=== PATIENT | male | born 1960 | race Caucasian/White ===

== ENCOUNTER 2022-12-21 13:19 | Emergency (ER) | payer BC, SELFPAY ==
[2022-12-21 13:28] VITALS: BP 190/93; PULSE 64; RESP 16; TEMP 36.5; O2SAT 99; BMI 31.6
--- NOTE | 2022-12-21 14:07 | DI.RAD.S_ITS ---
PROCEDURE: XR HIP W PEL IF DONE RT 2V INDICATIONS: right hip and leg pain TECHNIQUE: AP pelvis with lateral view(s) of the right hip(s). COMPARISON: None. FINDINGS: Bones: No fractures or dislocations. Pelvic ring appears intact. No suspicious bony lesions. [id number] bilateral, right greater than left degenerative narrowing of hip joints. Periarticular osteophytes are most prominent on the right. Soft tissues: The visualized bowel gas pattern is normal. No suspicious soft tissue calcifications. IMPRESSION: Arthritic changes as above. Dictated by: Mindi Ortega M.D. on 12/21/2022 at 15:18 Approved by: Mindi Ortega M.D. on 12/21/2022 at 15:19
[2022-12-21] MEDS: OXYCODONE IR 5 MG TABLET PO (14:08)
--- NOTE | 2022-12-21 14:10 | ED.EXTPRO ---
HPI - Extremity Problem <Megan Ortega PA-C - Last Filed: 12/21/22 18:29> General Chief complaint: Extremity Problem,Nontraumatic Stated complaint: sent by [facility] leg pain Time Seen by Provider: 12/21/22 13:46 Source: patient Mode of arrival: Wheelchair History of Present Illness HPI Narrative: Patient is a 62 year old male who presents with 2 weeks of right hip and right lower extremity pain. The pain started 2 weeks ago and was not preceded by any injury or trauma. Pain started in his hip and over the next several days increased down the front of his thigh through his knee and into the front of his lower leg. He has been seen at at least 3 other facilities for the same pain, including the walk-in clinic on would be, that would be ER and urgent care in [place]. During these evaluations, he has had a negative workup for DVT in the right lower extremity, x-rays of virus lumbar spine. The only time he has felt any relief was when they gave him a dose of Decadron. He is tried taking muscle relaxers, Tylenol and hydrocodone with minimal relief. The pain is worse when he lays down, better when he is sitting. It is very painful to walk. The pain is constant, not a shooting intermittent pain. He denies any loss of bowel or bladder control or saddle anesthesia. He had 2 cardiac stents placed in March 2022 and currently takes rosuvastatin, losartan, clopidogrel, and aspirin. Related Data Home Medications Medication Instructions Recorded Confirmed aspirin 81 mg tablet,delayed 81 mg PO DAILY 12/21/22 12/21/22 release (Adult Low Dose Aspirin) clopidogrel 75 mg tablet 75 mg PO DAILY 12/21/22 12/21/22 hydrocodone 5 mg-acetaminophen 325 tab PO 12/21/22 12/21/22 mg tablet losartan 50 mg tablet 50 mg PO DAILY 12/21/22 12/21/22 rosuvastatin 40 mg tablet 40 mg PO DAILY 12/21/22 12/21/22 Previous Rx's Medication Instructions Recorded oxycodone 5 mg tablet 5 mg PO Q8H PRN pain #20 tabs 12/21/22 prednisone 50 mg tablet 50 mg PO DAILY #5 tabs 12/21/22 Allergies Allergy/AdvReac Type Severity Reaction Status Date / Time No Known Drug Allergies Allergy Unverified 12/21/22 12:44 Review of Systems <Megan Ortega PA-C - Last Filed: 12/21/22 18:29> Review of Systems ROS Unobtainable: All systems reviewed & are unremarkable except as noted in HPI and below Patient History <Megan Ortega PA-C - Last Filed: 12/21/22 18:29> Social History Smoking Status: Never smoker Smoking Status: Never smoker Substance Use Type: does not use Exam <Megan Ortega PA-C - Last Filed: 12/21/22 18:29> Narrative Exam Narrative: GENERAL: 62 year old patient appears stated age. Well-developed patient, in moderate distress. NEURO: AOx3. HEAD: Atraumatic. Normocephalic. EYES: Pupils equal round and reactive. Extraocular motions intact. No scleral icterus. No injection or drainage. ENT: Nose without bleeding or purulent drainage. Airway patent. NECK: Trachea midline. Non tender CARDIOVASCULAR: Regular rate and rhythm without murmurs, gallops, or rubs. RESPIRATORY: Clear to auscultation. Breath sounds equal bilaterally. No wheezes, rales, or rhonchi. GASTROINTESTINAL: Abdomen soft, non-tender, nondistended. EXTREMITIES: Trace left lower extremity edema, 1+ pitting edema of right lower extremity. In the affected right extremity there is tenderness with palpation over the medial calf, anterior fritz, medial joint line of the knee, tenderness of the thigh and significant pain with palpation over the greater trochanter. BACK: There is no midline tenderness deformity or step-off, there is right low paraspinal lumbar tenderness and tenderness over the gluteus tommy superiorly. No CVA tenderness. SKIN: No rash or erythema of visible areas Initial Vital Signs Initial Vital Signs: Vital Signs Temperature 97.7 F 12/21/22 13:28 Pulse Rate 64 12/21/22 13:28 Respiratory Rate 16 12/21/22 13:28 Blood Pressure 190/93 H 12/21/22 13:28 Pulse Oximetry 99 12/21/22 13:28 Oxygen Delivery Method Room Air 12/21/22 13:28 <Davie Campbell MD - Last Filed: 12/27/22 06:47> Initial Vital Signs Initial Vital Signs: Vital Signs Temperature 97.7 F 12/21/22 13:28 Pulse Rate 64 12/21/22 13:28 Respiratory Rate 16 12/21/22 13:28 Blood Pressure 190/93 H 12/21/22 13:28 Pulse Oximetry 99 12/21/22 13:28 Oxygen Delivery Method Room Air 12/21/22 13:28 Course <Megan Ortega PA-C - Last Filed: 12/21/22 18:29> Orders Ordered: Discontinued Medications Diazepam (Diazepam 5 Mg Tablet) 5 mg PO NOW ONE Stop: 12/21/22 15:28 Last Admin: 12/21/22 15:36 Dose: 5 mg Documented By: DOLORES Oxycodone HCl (Oxycodone Ir 5 Mg Tablet) 5 mg PO NOW ONE Stop: 12/21/22 14:03 Last Admin: 12/21/22 14:08 Dose: 5 mg Documented By: GENNARO Vital Signs Vital signs: Vital Signs - 8 hr 12/21/22 13:28 12/21/22 17:34 Temperature 97.7 F Pulse Rate 64 61 Respiratory Rate 16 Blood Pressure 190/93 H 176/80 H Pulse Oximetry 99 98 Oxygen Delivery Method Room Air Room Air <Davie Campbell MD - Last Filed: 12/27/22 06:47> Orders Ordered: Discontinued Medications Diazepam (Diazepam 5 Mg Tablet) 5 mg PO NOW ONE Stop: 12/21/22 15:28 Last Admin: 12/21/22 15:36 Dose: 5 mg Documented By: DOLORES Oxycodone HCl (Oxycodone Ir 5 Mg Tablet) 5 mg PO NOW ONE Stop: 12/21/22 14:03 Last Admin: 12/21/22 14:08 Dose: 5 mg Documented By: GENNARO Vital Signs Vital signs: Vital Signs - 8 hr 12/21/22 13:28 12/21/22 17:34 Temperature 97.7 F Pulse Rate 64 61 Respiratory Rate 16 Blood Pressure 190/93 H 176/80 H Pulse Oximetry 99 98 Oxygen Delivery Method Room Air Room Air MDM - Extremity (Nontraumatic) <Megan Ortega PA-C - Last Filed: 12/21/22 18:29> Lab Data 12/21/22 14:20 12/21/22 14:20 Labs: Lab Results 12/21/22 12/21/22 Range/Units 14:20 15:49 WBC 8.0 (4.5-11.0) X10^3/uL RBC 5.11 (4.0-5.2) X10^6/uL Hgb 15.1 (12.0-16.0) g/dL Hct 43.6 (36-46) % MCV 85.3 (80-100) fL MCH 29.5 (26-34) PG MCHC 34.5 (30-36) % RDW 13.0 (11.6-14.8) % Plt Count 333 (150-400) X10^3/uL Neut % (Auto) 57.1 (50-75) % Lymph % (Auto) 29.2 (25-40) % Miller % (Auto) 8.5 (3-14) % Eos % (Auto) 2.6 (2-4) % Baso % (Auto) 2.6 H (0-2) % Neut # (Auto) 4600 (4360-6476) /uL Lymph # (Auto) 2300 (9094-2591) /uL Miller # (Auto) 700 (0-900) /uL Eos # (Auto) 200 (0-450) /uL Baso # (Auto) 200 H (0-100) /uL ESR 9 (0-20) MM/HR Sodium 139 (137-145) mmol/L Potassium 3.9 (3.4-5.1) mmol/L Chloride 100 (98-107) mmol/L Carbon Dioxide 28 (22-32) mmol/L BUN 20 H (7-17) mg/dL Creatinine 0.86 (0.52-1.04) mg/dL Estimated GFR > 60 (>60) mL/min BUN/Creatinine Ratio 23.3 H (6-22) Glucose 93 (80-110) mg/dL Calcium 10.1 (8.4-10.2) mg/dL Total Bilirubin 0.6 (0.2-1.3) mg/dL AST 46 H (14-36) IU/L ALT 96 H (<35) IU/L Alkaline Phosphatase 52 (38-126) U/L C-Reactive Protein < 0.5 (<1.0) mg/dL Total Protein 8.7 H (6.3-8.2) g/dL Albumin 4.9 (3.5-5.0) g/dL Globulin 3.8 (1.7-4.1) g/dL Albumin/Globulin Ratio 1.3 (1.0-2.8) Urine RBC 0-1/hpf (0-5/HPF) Urine WBC 5-10/hpf H (0-5/HPF) Ur Squamous Epith Cells None seen (0-5/HPF) Urine Bacteria Occasional (0-1) (None) Urine Mucus 2+ H (Negative) Ur Culture Indicated? Specimen cultured Urine Dip Bedside Urine Glucose Negative Bedside Urine Bilirubin - Negative Bedside Urine Ketone - Negative Urine Specific [place] 1.025 Bedside Urine Occult Blood + Bedside Urine pH 5.5 Bedside Urine Protein - Negative Bedside Urine Urobilinogen - Negative Bedside Urine Nitrite - Negative Bedside Urine Leukocytes - Negative Esterase Imaging Data Extremity x-ray #1: Radiologist's Impression: PROCEDURE: XR HIP W PEL IF DONE RT 2V INDICATIONS: right hip and leg pain TECHNIQUE: AP pelvis with lateral view(s) of the right hip(s). COMPARISON: None. FINDINGS: Bones: No fractures or dislocations. Pelvic ring appears intact. No suspicious bony lesions. [id number] bilateral, right greater than left degenerative narrowing of hip joints. Periarticular osteophytes are most prominent on the right. Soft tissues: The visualized bowel gas pattern is normal. No suspicious soft tissue calcifications. IMPRESSION: Arthritic changes as above. Dictated by: Mindi Ortega M.D. on 12/21/2022 at 15:18 Approved by: Mindi Ortega M.D. on 12/21/2022 at 15:19 CT pelvis: Radiologist's Impression: PROCEDURE: CT PEL WO CON INDICATIONS: 2 weeks severe right hip pain, radiates down leg TECHNIQUE: Noncontrast 3 mm axial sections acquired through the bony pelvis, with coronal and sagittal reformatting. COMPARISON: [facility], , XR HIP W PEL IF DONE RT 2V, 12/21/2022, 14:33. FINDINGS: Image quality: Excellent. Bones: No acute osseous fracture identified. Moderate degenerative changes are seen in the right hip with joint space narrowing, subchondral cystic changes, subchondral sclerosis, and marginal osteophyte formation. Mild irregularity of the lateral acetabulum may be secondary to osteoarthrosis or remote prior trauma. Mild degenerative changes are seen in the left hip. Chronic osseous fusion is noted at the bilateral L5-S1 facets in the right L4-5 facet. Mild degenerative changes are seen in the sacroiliac joints bilaterally. Soft tissues: No focal soft tissue edema or hematoma. No significant hip effusion. The articular cartilages, labrum, ligaments, and tendons are not well evaluated with standard CT. The included pelvic soft tissues demonstrate no acute abnormality. Mild colonic diverticulosis. Small periumbilical hernia contains fat and a short segment of small bowel. IMPRESSION: 1. No acute osseous abnormality. 2. Moderate degenerative changes in the right hip, which may be secondary to primary osteoarthrosis versus prior trauma with secondary degenerative changes. 3. Mild left hip osteoarthrosis. 4. Degenerative changes in the included lumbar spine. 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 5. Small periumbilical hernia contains fat and a short segment of small bowel. Visualized small bowel loops are nondistended. Approved by: Jeffery Madrigal M.D. on 12/21/2022 at 16:45 MDM Narrative Medical decision making narrative: Multiple etiologies for patient's symptoms considered including, but not limited to: Sciatica, ligamentous injury, cauda equina, avascular necrosis of the hip, hip fracture or dislocation. Patient had negative DVT study an outside facility. Today, Labs reassuring without leukocytosis, elevation inflammatory markers or other abnormality. LFTs mildly elevated but unlikely to be clinically significant in this setting. Both x-ray and pelvic CT show degenerative and arthritic changes but no fracture, dislocation or other cause of his acute pain. UA with a few WBCs, unlikely to be infected and we will monitor culture for growth. Discussed these findings with the patient and his . At this point, I would recommend ongoing pain control and referral to physical therapy. We will trial 5 day course of oral steroids, muscle relaxers and Tylenol. Prescription for oxycodone given for severe pain. Referral to physical therapy and [facility]. Patient is from [place] and is here in his RV but can stay for a while; encouraged them to reach out to their home clinic and investigate further treatment options. Patient and state understanding of the instructions. Patient's symptoms improved over duration of stay with above-stated therapies. Findings and discharge diagnosis discussed with patient/family followed by verbalization of understanding Return precautions discussed with patient/family whom verbalize understanding of diagnosis and plan <Davie Campbell MD - Last Filed: 12/27/22 06:47> Lab Data Labs: Lab Results 12/21/22 12/21/22 Range/Units 14:20 15:49 WBC 8.0 (4.5-11.0) X10^3/uL RBC 5.11 (4.0-5.2) X10^6/uL Hgb 15.1 (12.0-16.0) g/dL Hct 43.6 (36-46) % MCV 85.3 (80-100) fL MCH 29.5 (26-34) PG MCHC 34.5 (30-36) % RDW 13.0 (11.6-14.8) % Plt Count 333 (150-400) X10^3/uL Neut % (Auto) 57.1 (50-75) % Lymph % (Auto) 29.2 (25-40) % Miller % (Auto) 8.5 (3-14) % Eos % (Auto) 2.6 (2-4) % Baso % (Auto) 2.6 H (0-2) % Neut # (Auto) 4600 (4800-2832) /uL Lymph # (Auto) 2300 (6994-2327) /uL Miller # (Auto) 700 (0-900) /uL Eos # (Auto) 200 (0-450) /uL Baso # (Auto) 200 H (0-100) /uL ESR 9 (0-20) MM/HR Sodium 139 (137-145) mmol/L Potassium 3.9 (3.4-5.1) mmol/L Chloride 100 (98-107) mmol/L Carbon Dioxide 28 (22-32) mmol/L BUN 20 H (7-17) mg/dL Creatinine 0.86 (0.52-1.04) mg/dL Estimated GFR > 60 (>60) mL/min BUN/Creatinine Ratio 23.3 H (6-22) Glucose 93 (80-110) mg/dL Calcium 10.1 (8.4-10.2) mg/dL Total Bilirubin 0.6 (0.2-1.3) mg/dL AST 46 H (14-36) IU/L ALT 96 H (<35) IU/L Alkaline Phosphatase 52 (38-126) U/L C-Reactive Protein < 0.5 (<1.0) mg/dL Total Protein 8.7 H (6.3-8.2) g/dL Albumin 4.9 (3.5-5.0) g/dL Globulin 3.8 (1.7-4.1) g/dL Albumin/Globulin Ratio 1.3 (1.0-2.8) Urine RBC 0-1/hpf (0-5/HPF) Urine WBC 5-10/hpf H (0-5/HPF) Ur Squamous Epith Cells None seen (0-5/HPF) Urine Bacteria Occasional (0-1) (None) Urine Mucus 2+ H (Negative) Ur Culture Indicated? Specimen cultured Urine Dip Bedside Urine Glucose Negative Bedside Urine Bilirubin - Negative Bedside Urine Ketone - Negative Urine Specific [place] 1.025 Bedside Urine Occult Blood + Bedside Urine pH 5.5 Bedside Urine Protein - Negative Bedside Urine Urobilinogen - Negative Bedside Urine Nitrite - Negative Bedside Urine Leukocytes - Negative Esterase Discharge Plan Departure Patient Disposition: Home Clinical Impression: Acute pain of right hip Low back pain Qualifiers: Chronicity: acute Back pain laterality: right Sciatica presence: with sciatica Sciatica laterality: sciatica of right side Qualified Code(s): M54.41 - Lumbago with sciatica, right side Instructions: DI for Low Back Pain, DI for Hip Pain Activity Restrictions/Additional Instructions: *You have been diagnosed with right low back pain and right hip pain. Your labs are very reassuring and your x-ray and CT scan did not show any acute cause of your pain. I will place a referral to physical therapy today, if you have not heard from them in a few days you can go ahead and give a call to schedule. If you develop any loss of control of bowel or bladder or any numbness in your groin, please return to the emergency department immediately. *What to do: *Please continue to take your regular medications as directed. [x] New medication prescriptions sent to your pharmacy: [facility] [ ] New medication written as a paper prescription [ ] No new medications given You have been prescribed a short course of narcotic medications. These are potentially dangerous and addictive medications that should be used carefully. While on these medications you cannot drive or operate heavy machinery. Do not drink alcohol or use other sedative medications while you are taking this medication. Additionally, you cannot sign legal documents or perform any duties such as this. 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 Please understand that we cannot provide further refills of narcotics or controlled substances through the ED and your pain management will need to be through your Primary Care Provider. *Please follow up with your primary care provider in 2-3 days, call for an appointment. Let them know you were seen in the Emergency Department and that we ask that you be seen in follow up. We will electronically transmit a record of today's note if your PCP is in our system *If you do not have a primary care provider please contact the [facility] Resource line at [phone]. They will ask some questions about your medical history and help get you set up with a doctor in the community. *Return to Emergency Department if you should have any new, worsening or concerning symptoms, such as [fever greater than 101 F, shaking chills, worsening pain, persistent vomiting or other concerning symptoms]. Prescriptions: New prednisone 50 mg tablet 50 mg PO DAILY Qty: 5 0RF oxycodone 5 mg tablet 5 mg PO Q8H PRN (Reason: pain) Qty: 20 0RF No Action rosuvastatin 40 mg tablet 40 mg PO DAILY clopidogrel 75 mg tablet 75 mg PO DAILY losartan 50 mg tablet 50 mg PO DAILY hydrocodone-acetaminophen 5-325 mg tablet PO aspirin [Adult Low Dose Aspirin] 81 mg tablet,delayed release (DR/EC) 81 mg PO DAILY Referrals: [facility] [place] [Provider Group] Miscellaneous,[facility] [Primary Care Provider] - Stand Alone Forms: Patient Portal/API ED Sign-out <Davie Campbell MD - Last Filed: 12/27/22 06:47> Cosign ED Attending Anyaature Attestation: I was immediately available in the department for consultation. ?This documentation has been reviewed and I agree with assessment and plan. Supervised by Davie Campbell MD
[2022-12-21 14:37] LABS: Add Manual Diff / Slide Review NO; Basophils Absolute Auto 200 /uL (0-100); Basophils Percent Auto 2.6 % (0-2); Eosinophils Absolute Auto 200 /uL (0-450); Eosinophils Percent Auto 2.6 % (2-4); Hematocrit 43.6 % (36-46); Hemoglobin 15.1 g/dL (12.0-16.0); Lymphocytes Absolute Auto 2300 /uL (1100-4500); Lymphocytes Percent Auto 29.2 % (25-40); Mean Corpuscular HGB Conc 34.5 % (30-36); Mean Corpuscular Hemoglobin 29.5 PG (26-34); Mean Corpuscular Volume 85.3 fL (80-100); Monocytes Absolute Auto 700 /uL (0-900); Monocytes Percent Auto 8.5 % (3-14); Neutrophils Absolute Auto 4600 /uL (1500-7000); Neutrophils Percent Auto 57.1 % (50-75); Platelet Count 333 X10^3/uL (150-400); Red Blood Cell Count 5.11 X10^6/uL (4.0-5.2)
[2022-12-21 14:51] LABS: Alanine Aminotransferase 96 IU/L (<35); Albumin 4.9 g/dL (3.5-5.0); Albumin Globulin Ratio 1.3 (1.0-2.8); Alkaline Phosphatase 52 U/L (38-126); Aspartate Aminotransferase 46 IU/L (14-36); BUN Creatinine Ratio 23.3 (6-22); Bilirubin Total 0.6 mg/dL (0.2-1.3); Blood Urea Nitrogen 20 mg/dL (7-17); C-Reactive Protein Quant < 0.5 mg/dL (<1.0); Calcium 10.1 mg/dL (8.4-10.2); Carbon Dioxide 28 mmol/L (22-32); Chloride 100 mmol/L (98-107); Estimated Glomerular Filt Rate > 60 mL/min (>60); Globulin 3.8 g/dL (1.7-4.1); Glucose 93 mg/dL (80-110); HEMOLYSIS < 15 (0-50); Potassium 3.9 mmol/L (3.4-5.1); Sodium 139 mmol/L (137-145); Total Protein 8.7 g/dL (6.3-8.2)
[2022-12-21 14:59] LABS: Erythrocyte Sedimentation Rate 9 MM/HR (0-20)
[2022-12-21] MEDS: diazePAM 5 MG TABLET PO (15:36)
--- NOTE | 2022-12-21 15:58 | DI.CT.S_ITS ---
PROCEDURE: CT PEL WO CON INDICATIONS: 2 weeks severe right hip pain, radiates down leg TECHNIQUE: Noncontrast 3 mm axial sections acquired through the bony pelvis, with coronal and sagittal reformatting. COMPARISON: [facility], CR, XR HIP W PEL IF DONE RT 2V, 12/21/2022, 14:33. FINDINGS: Image quality: Excellent. Bones: No acute osseous fracture identified. Moderate degenerative changes are seen in the right hip with joint space narrowing, subchondral cystic changes, subchondral sclerosis, and marginal osteophyte formation. Mild irregularity of the lateral acetabulum may be secondary to osteoarthrosis or remote prior trauma. Mild degenerative changes are seen in the left hip. Chronic osseous fusion is noted at the bilateral L5-S1 facets in the right L4-5 facet. Mild degenerative changes are seen in the sacroiliac joints bilaterally. Soft tissues: No focal soft tissue edema or hematoma. No significant hip effusion. The articular cartilages, labrum, ligaments, and tendons are not well evaluated with standard CT. The included pelvic soft tissues demonstrate no acute abnormality. Mild colonic diverticulosis. Small periumbilical hernia contains fat and a short segment of small bowel. IMPRESSION: 1. No acute osseous abnormality. 2. Moderate degenerative changes in the right hip, which may be secondary to primary osteoarthrosis versus prior trauma with secondary degenerative changes. 3. Mild left hip osteoarthrosis. 4. Degenerative changes in the included lumbar spine. 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 5. Small periumbilical hernia contains fat and a short segment of small bowel. Visualized small bowel loops are nondistended. Approved by: Jeffery Madrigal M.D. on 12/21/2022 at 16:45
[2022-12-21 16:03] LABS: Bacteria Urine Occasional (0-1); Culture Indicated Urine Specimen Cultured; Mucus Urine 2+ (Negative); RBC Urine 0-1/HPF (0-5/HPF); Squamous Epithelial Cell Urine None Seen (0-5/HPF); WBC Urine 5-10/HPF (0-5/HPF)
[2022-12-21 17:34] VITALS: BP 176/80; PULSE 61; O2SAT 98
--- NOTE | 2022-12-21 17:46 | PC.NURSE ---
First time meeting pt is at time of d/c, refer to PA note for assessment
== END 2022-12-21 17:34 | disposition home or self-care (01) ==
PROVIDERS: Emergency Provider Physician Assistant
DX: M54.41 Lumbago with sciatica, right side (principal); M25.551 Pain in right hip
CPT/HCPCS: 36415; 72192; 73502; 80053; 81003; 81015; 85025; 85651; 86140; 87086; 99284